=== PATIENT | female | born 1945 | race Caucasian/White ===

== ENCOUNTER 2019-01-17 15:26 | Inpatient (IN) | payer MEDICARE ==
[~2019-01-17] VITALS: Ht 165.1 cm; Wt 85.7 kg
[2019-01-17] MEDS ORDERED: PRAVASTATIN SOD10 MG PO (15:44)
[2019-01-17] MEDS ORDERED: TENORMIN25 MG PO (15:44)
[2019-01-17] MEDS ORDERED: NORVASC5 MG PO (15:45)
[2019-01-17] MEDS ORDERED: ULTRAM50 MG PO (15:46)
[2019-01-17] MEDS ORDERED: HYDROCHLOROTH12.5 M1 PO (15:46)
[2019-01-17] MEDS ORDERED: GABAPENTIN100 MG PO (15:47)
[2019-01-17 15:49] VITALS: BP 147/82; BMI 30.8
--- NOTE | 2019-01-17 16:04 | NUR ---
PATIENT ADMITTED TO ROOM 2213. ADMISSION ASSESSMENT COMPLETED.
--- NOTE | 2019-01-17 17:00 | NUR ---
IV SITED TO RIGHT HAND AFTER 3 ATTEMPTS BY 3 NURSES.
[2019-01-17 17:09] LABS: BASOPHILS 0.2 % (0-2); EOSINOPHILS 1.7 % (0-7); HEMATOCRIT 41.3 % (36.0-48.0); HEMOGLOBIN 13.7 g/dL (12-16); IMMATURE GRANULOCYTES 0.2 % (0-5); LYMPHOCYTES 25.3 % (15-50); MCH 29.9 pg (26.0-34.0); MCHC 33.2 g/dL (31.0-37.0); MCV 90.2 fL (80.0-100.0); MEAN PLATELET VOLUME 10.3 fL (7.4-10.4); MONOCYTES 9.4 % (2-11); NEUTROPHILS 63.2 % (40-80); PLATELET COUNT 214 10x3/uL (130-400); RBC 4.58 10x6/uL (4.00-5.40); RDW 12.9 % (11.5-14.5); WBC 8.3 10x3/uL (4.8-10.8)
--- NOTE | 2019-01-17 17:10 | NUR ---
EDUCATION PROVIDED ON NEED FOR URINE AND STOOL SAMPLE. HAT IN TOILET. CUP IN ROOM. VERBALIZED UNDERSTANDING.
[2019-01-17 17:25] LABS: ALBUMIN 3.5 g/dL (3.4-5.0); ANION GAP 11.3 mmol/L (8-16); BILIRUBIN - TOTAL 0.43 mg/dL (0.2-1.3); CALCIUM 8.9 mg/dL (8.5-10.1); CARBON DIOXIDE 30.4 mmol/L (21.0-32.0); MAGNESIUM - SERUM 2.2 mg/dL (1.8-2.4); POTASSIUM - SERUM 3.7 mmol/L (3.5-5.1); PROTEIN - SERUM 7.5 g/dL (6.4-8.2)
--- NOTE | 2019-01-17 18:19 | NUR ---
RESTING IN BED. AT BEDSIDE. DENIES NEEDS. WILL CONTINUE TO MONITOR.
--- NOTE | 2019-01-17 18:57 | NUR ---
PATIENT C/O MILD ITCHING TO RIGHT WRIST. IV LEVAQUIN RUNNING WITH 10 MINUTES LEFT. SLIGHT REDNESS NOTED LOCALIZED TO RIGHT WRIST. FLUSHES AND DRAWS WITHOUT DIFFICULTY. NELLIE HUFF NOTIFIED. LEVAQUIN RATE SLOWED TO 50/HR. WILL MONITOR.
--- NOTE | 2019-01-17 19:45 | NUR ---
PT SITTING UP IN BED WITHOUT DISTRESS. AOX4. AT BEDSIDE. IV RIGHT HAND INFUSING NS @ 100. DENIES PAIN. REQUESTED AND GIVEN WARM BLANKET. DENIES OTHER NEEDS. CL IN REACH, WILL CTM
[2019-01-17 20:00] VITALS: BP 127/57
[2019-01-18] VITALS: BP 115/45
--- NOTE | 2019-01-18 00:10 | NUR ---
PT STATES SHE HAS HEADACHE 6/10 AND CAN'T SLEEP. OFFERED PT TYLENOL, PT STATED SHE DID NOT THINK IT WOULD HELP. PT REQUESTED ULTRAM INSTEAD. GAVE ULTRAM ORDERED. DENIES OTHER NEEDS. WILL CTM
[2019-01-18 04:00] VITALS: BP 109/45
[2019-01-18 06:16] LABS: BASOPHILS 0.4 % (0-2); EOSINOPHILS 2.5 % (0-7); HEMATOCRIT 41.7 % (36.0-48.0); HEMOGLOBIN 13.3 g/dL (12-16); IMMATURE GRANULOCYTES 0.1 % (0-5); LYMPHOCYTES 31.2 % (15-50); MCH 29.5 pg (26.0-34.0); MCHC 31.9 g/dL (31.0-37.0); MEAN PLATELET VOLUME 11.4 fL (7.4-10.4); MONOCYTES 11.6 % (2-11); NEUTROPHILS 54.2 % (40-80); PLATELET COUNT 200 10x3/uL (130-400); RBC 4.51 10x6/uL (4.00-5.40); WBC 7.7 10x3/uL (4.8-10.8)
[2019-01-18 06:19] LABS: MCV 92.5 fL (80.0-100.0)
[2019-01-18 06:38] LABS: ANION GAP 13.6 mmol/L (8-16); CALCIUM 8.5 mg/dL (8.5-10.1); CARBON DIOXIDE 27.4 mmol/L (21.0-32.0); CREATININE - SERUM 0.8 mg/dL (0.6-1.3); MAGNESIUM - SERUM 2.1 mg/dL (1.8-2.4); PHOSPHOROUS 3.4 mg/dL (2.5-4.9)
--- NOTE | 2019-01-18 08:30 | NUR ---
PATIENT SITTING IN CHAIR. NO NEEDS AT THIS TIME. CL IN REACH. WCTM
[2019-01-18 09:18] VITALS: BP 133/46
[2019-01-18 09:41] VITALS: Ht 165.1 cm; Wt 85.7 kg
--- NOTE | 2019-01-18 11:30 | NUR ---
IN ROOM. PATIENT JUST GOT DONE WITH SHOWER. IV THERAPY RESTARTED. IN HOME CLOTHS AND STATES SHE FEELS "CLEAN NOW." CL IN REACH. WCTM
[2019-01-18 13:33] VITALS: BP 118/52
[2019-01-18 18:07] VITALS: BP 131/66
[2019-01-18 18:39] LABS: APPEARANCE CLEAR (CLEAR); BILIRUBIN NEGATIVE (NEGATIVE); COLOR YELLOW (YELLOW); GLUCOSE NEGATIVE (NEGATIVE); KETONE SMALL mg/dL (NEGATIVE); NITRITE NEGATIVE (NEGATIVE); PROTEIN NEGATIVE (NEGATIVE); UROBILINOGEN NORMAL (NORMAL)
[2019-01-18 18:41] LABS: BACTERIA FEW /hpf (NEGATIVE); EPITHELIAL CELLS 0-5 /hpf (0-5); RED CELLS - URINE OCC /hpf (0-5); WHITE CELLS - URINE 0-5 /hpf (NEGATIVE)
--- NOTE | 2019-01-18 19:35 | NUR ---
PT LYING IN BED RESTING WITHOUT DISTRESS, AOX4. AT BEDSIDE. PT STATES HEADACHE 6/10 PAIN. WILL GIVE ULTRAM ORDERED, SEE MAR. IV RT HAND INFUSING NS @ 100. REFUSES SCDS D/T HAVING TO GET UP QUICKLY TO BATHROOM WHEN HAVING DIARRHEA. PT STATES SHE IS GOING TO TRY TO GO AHEAD AND GO TO SLEEP STATING SHE DID NOT GET MUCH SLEEP THE NIGHT BEFORE. DENIES FURTHER NEEDS. CL IN REACH, WILL CTM
--- NOTE | 2019-01-18 21:00 | NUR ---
HS MEDS GIVEN WITHOUT DIFFICULTY. HELD [facility] D/T BP 101/41. DENIES OTHER NEEDS. WILL CTM
[2019-01-18 21:04] VITALS: BP 101/41
--- NOTE | 2019-01-19 00:30 | NUR ---
PT COMPLAINING OF BEING NAUSEOUS. GAVE ZOFRAN ORDERED. DENIES OTHER NEEDS. WILL CTM
[2019-01-19 00:57] VITALS: BP 110/41
[2019-01-19 04:15] VITALS: BP 104/48
[2019-01-19 05:22] LABS: BASOPHILS 0.7 % (0-2); EOSINOPHILS 2.3 % (0-7); HEMATOCRIT 36.6 % (36.0-48.0); HEMOGLOBIN 11.7 g/dL (12-16); IMMATURE GRANULOCYTES 0.4 % (0-5); LYMPHOCYTES 24.8 % (15-50); MCH 29.5 pg (26.0-34.0); MCV 92.2 fL (80.0-100.0); MEAN PLATELET VOLUME 10.7 fL (7.4-10.4); MONOCYTES 8.8 % (2-11); PLATELET COUNT 170 10x3/uL (130-400); RBC 3.97 10x6/uL (4.00-5.40); RDW 12.9 % (11.5-14.5); WBC 6.8 10x3/uL (4.8-10.8)
[2019-01-19 05:42] LABS: ANION GAP 11.9 mmol/L (8-16); CALCIUM 7.9 mg/dL (8.5-10.1); CARBON DIOXIDE 24.3 mmol/L (21.0-32.0); CREATININE - SERUM 0.8 mg/dL (0.6-1.3); POTASSIUM - SERUM 4.2 mmol/L (3.5-5.1)
--- NOTE | 2019-01-19 08:50 | NUR ---
PATIENT TAKING SHOWER. NO NEEDS AT THIS TIME. CL IN REACH. WCTM
[2019-01-19 08:54] VITALS: BP 99/45
[2019-01-19 13:13] VITALS: BP 130/46
[2019-01-19 16:36] VITALS: BP 122/66
[2019-01-19 20:58] VITALS: BP 131/53
[2019-01-20 00:46] VITALS: BP 130/62
[2019-01-20 00:57] VITALS: BP 140/63
[2019-01-20 05:08] VITALS: BP 116/57
[2019-01-20 05:32] LABS: BASOPHILS 0.7 % (0-2); EOSINOPHILS 3.3 % (0-7); HEMATOCRIT 36.9 % (36.0-48.0); HEMOGLOBIN 11.9 g/dL (12-16); IMMATURE GRANULOCYTES 0.2 % (0-5); LYMPHOCYTES 29.5 % (15-50); MCH 29.1 pg (26.0-34.0); MCHC 32.2 g/dL (31.0-37.0); MEAN PLATELET VOLUME 10.3 fL (7.4-10.4); MONOCYTES 10.6 % (2-11); NEUTROPHILS 55.7 % (40-80); RBC 4.09 10x6/uL (4.00-5.40); RDW 12.8 % (11.5-14.5)
[2019-01-20 05:44] LABS: MCV 90.2 fL (80.0-100.0); PLATELET COUNT 207 10x3/uL (130-400)
[2019-01-20 05:49] LABS: ANION GAP 8.5 mmol/L (8-16); CARBON DIOXIDE 28.3 mmol/L (21.0-32.0); CREATININE - SERUM 0.8 mg/dL (0.6-1.3); MAGNESIUM - SERUM 1.8 mg/dL (1.8-2.4); PHOSPHOROUS 2.9 mg/dL (2.5-4.9); POTASSIUM - SERUM 3.8 mmol/L (3.5-5.1)
--- NOTE | 2019-01-20 07:37 | NUR ---
PT SITTING UP IN BED WATCHING TV. RESP EVEN AND UNLABORED. PT DENIES PAIN AT THIS TIME. IV TO RIGHT HAND WITH NS @ 100ML/HR INFUSING VIA PUMP. SITE WITHOUT REDNESS OR EDEMA. PT VOICES WISHES TO D/C HOME TODAY SHE VOICES FEELING BETTER. DENIES FURTHER NEEDS AT THIS TIME. CL WITHIN REACH. ENCOURAGED TO CALL WITH NEEDS. CONTINUE POC
[2019-01-20 08:24] VITALS: BP 129/46
[2019-01-20] MEDS ORDERED: FLORANEX / LACT1 TAB PO (12:36)
[2019-01-20] MEDS ORDERED: PROTONIX40 MG PO (12:36)
[2019-01-20] MEDS ORDERED: MIRALAX17 GM PO (12:37)
[2019-01-20] MEDS ORDERED: ZOFRAN ODT4 MG/UDTAB PO (12:37)
[2019-01-20] MEDS ORDERED: FLAGYL500 MG PO (12:38)
[2019-01-20] MEDS ORDERED: LEVOFLOXACIN500 MG PO (12:38)
--- NOTE | 2019-01-20 13:32 | MORECARE ---
CASE MANAGEMENT DISCHARGE SUMMARY PATIENT: CHRISTOPHER MARCELINO UNIT: [id number] ADM DATE: 01/17/19 AGE: 73 : 47 SEX: F ROOM/BED: D.2213 AUTHOR: ALEN LITTLE PHYSICIAN: REFERRING PHYSICIAN: LUIS ALBERTO LAUREANO MD DATE OF SERVICE: 01/20/19 Discharge Plan Patient Name: CHRISTOPHER MARCELINO Facility: [facility]:[place] : 1945 Planned Disposition: Home or Self Care Anticipated Discharge Date: Discharge Date: Expected LOS: Initial Reviewer: [email or web address] Initial Review Date: 01/17/2019 Generated: 01/20/19 2:32 pm Comments DCP- Discharge Planning Updated by [id number]: Claribel Jose on 01/20/19 12:[address] Patient Name: CHRISTOPHER MARCELINO Admission Status: Elective Accout number: [id number] Admission Date: 01-17-2019 : 1945 Admission Diagnosis: Attending: LUIS ALBERTO NAVAS Current LOS: 3 Anticipated DC Date: Planned Disposition: Home or Self Care Primary Insurance: MEDICARE A & B Discharge Planning Comments: CM met with patient to complete initial dc planning assessment. CM educated patient on the CM role and verbal consent given by patient to complete assessment. Patient lives at home with her and stated she is independent with her care. At discharge patient plans to return home and feels this is a safe discharge. CM discussed availability of home health, rehab services, and medical equipment. Patient denied known discharge needs at this time. Her will be her electric train driver home. IMM served and explained. CM will continue to follow and will assist as needed with dc plans/needs. Ultrasound Sonographer: Claribel Jose DCPIA - Discharge Planning Initial Assessment Updated by [email or web address]: Claribel Jose on 01/20/19 1:26 pm * Is the patient Alert and Oriented? Yes * How many steps to enter\exit or inside your home? * PCP NU * Pharmacy [facility] * Preadmission Environment Home with Family * ADLs Independent * Equipment None * List name and contact numbers for known caregivers / representatives who currently or will assist patient after discharge: JOANNE MARCELINO [phone] * Verbal permission to speak to the caregivers and representatives has been obtained from the patient. Yes * Community resources currently utilized None * Additional services required to return to the preadmission environment? No * Can the patient safely return to the preadmission environment? Yes * Has this patient been hospitalized within the prior 30 days at any hospital? No Coverage Notice Reviewer: [email or web address] Amairani Jose Notice Issued Date-Time: 01/20/2019 13:25 Notice Type: IM Discharge Notice Notice Delivered To: Patient Relationship to Patient: Curriculum Writer Name: Delivery Method: HAND - Hand Delivered Osiris Days: Prior Verbal Notification: Recipient Understood Notice: Yes Recipient Signature: Yes Med Rec Note Co-signed by Attending: Coverage Notice Comment: Patient Name: CHRISTOPHER MARCELINO Page [phone] at 1332 All edits/amendments must be made on the electronic document DICTATION DATE: 01/20/191331 CRACKING AND FANNING MACHINE OPERATOR: ROSARIO 01/20/19 1332 RPT#: [id number] DC DATE: STATUS: ADM IN [facility] [address] [place] [address] END OF REPORT
[2019-01-20 13:33] VITALS: BP 141/55
--- NOTE | 2019-01-20 14:04 | NUR ---
PT DISCHARGE INFORMATION PROVIDED. DISCUSSED PRESCRIPTIONS AND CONTINUING HOME MEDICATIONS. FOLLOW UP APPOINTMENT GIVEN. PT DENIES QUESTIONS OR CONCERNS AT THIS TIME. IV TO RIGHT HAND D/C'D CATH INTACT. PT TAKEN OUT VIA W/C TO PRIVATE VEHICLE WITH PERSONAL BELONGINGS.
--- NOTE | 2019-01-21 14:04 | MORECARE ---
CASE MANAGEMENT DISCHARGE SUMMARY PATIENT: CHRISTOPHER MARCELINO UNIT: [id number] ADM DATE: 01/17/19 AGE: 73 : 47 SEX: F ROOM/BED: D.2213 AUTHOR: ALEN LITTLE PHYSICIAN: REFERRING PHYSICIAN: LUIS ALBERTO LAUREANO MD DATE OF SERVICE: 01/21/19 Discharge Plan Patient Name: CHRISTOPHER MARCELINO Facility: [facility]:[place] : 1945 Planned Disposition: Home or Self Care Anticipated Discharge Date: Discharge Date: 01/20/2019 Expected LOS: 0 Initial Reviewer: [email or web address] Initial Review Date: 01/17/2019 Generated: 01/21/19 3:04 pm Comments DCP- Discharge Planning Updated by [email or web address]: Claribel Jose on 01/20/19 12:[address] Patient Name: CHRISTOPHER MARCELINO Admission Status: Elective Accout number: [id number] Admission Date: 01-17-2019 : 1945 Admission Diagnosis: Attending: LUIS ALBERTO NAVAS Current LOS: 3 Anticipated DC Date: Planned Disposition: Home or Self Care Primary Insurance: MEDICARE A & B Discharge Planning Comments: CM met with patient to complete initial dc planning assessment. CM educated patient on the CM role and verbal consent given by patient to complete assessment. Patient lives at home with her and stated she is independent with her care. At discharge patient plans to return home and feels this is a safe discharge. CM discussed availability of home health, rehab services, and medical equipment. Patient denied known discharge needs at this time. Her will be her line haul truck driver home. IMM served and explained. CM will continue to follow and will assist as needed with dc plans/needs. Refrigeration Engineering Teacher: Claribel Jose DCPIA - Discharge Planning Initial Assessment Updated by [id number]: Claribel Jose on 01/20/19 1:26 pm * Is the patient Alert and Oriented? Yes * How many steps to enter\exit or inside your home? * PCP NU * Pharmacy [facility] * Preadmission Environment Home with Family * ADLs Independent * Equipment None * List name and contact numbers for known caregivers / representatives who currently or will assist patient after discharge: JOANNE MARCELINO [phone] * Verbal permission to speak to the caregivers and representatives has been obtained from the patient. Yes * Community resources currently utilized None * Additional services required to return to the preadmission environment? No * Can the patient safely return to the preadmission environment? Yes * Has this patient been hospitalized within the prior 30 days at any hospital? No Coverage Notice Reviewer: [id number] Amairani Jose Notice Issued Date-Time: 01/20/2019 13:25 Notice Type: IM Discharge Notice Notice Delivered To: Patient Relationship to Patient: Recreational Aide Name: Delivery Method: HAND - Hand Delivered Osiris Days: Prior Verbal Notification: Recipient Understood Notice: Yes Recipient Signature: Yes Med Rec Note Co-signed by Attending: Coverage Notice Comment: Last DP export: 01/20/19 12:32 Patient Name: CHRISTOPHER MARCELINO Page [phone] at 1404 All edits/amendments must be made on the electronic document DICTATION DATE: 01/21/191402 ROCK BREAKER: ROSARIO 01/21/191402 RPT#: [id number] DC DATE:01/20/19 STATUS: DIS IN [facility] [address] [place] [address] END OF REPORT
[2019-01-23 14:09] LABS: OVA + PARASITE EXAM Final report (())
== END 2019-01-20 14:29 | disposition home or self-care (01) | DRG 392 ==
LOC: D.MS 15:26
PROVIDERS: Internal Medicine Nephrology; ADMIT Family Medicine; ATTEND Family Medicine
DX: K57.92 Diverticulitis of intestine, part unspecified, without perforation or abscess without bleeding (principal); I10 Essential (primary) hypertension; G62.9 Polyneuropathy, unspecified; E78.5 Hyperlipidemia, unspecified; M19.90 Unspecified osteoarthritis, unspecified site